=== PATIENT | female | born 1990 | race American Indian/Alaskan Native ===

== ENCOUNTER 2016-10-11 11:29 | Emergency (ER) | payer MEDICAID, OTHER ==
[2016-10-11 12:12] VITALS: BP 110/61
[2016-10-11] MEDS ORDERED: TYLENOL PO ONE ×2 (12:13→13:17)
[2016-10-11] MEDS ORDERED: LIDOCAINE VISCOUS 2% PO ONE (13:17)
[2016-10-11] MEDS ORDERED: XYLOCAINE 1% MPF 5 mL INFILTRATI ONE (13:17)
[2016-10-11] MEDS ORDERED: DELTASONE PO ONE (13:17)
[2016-10-11] MEDS ORDERED: ROCEPHIN IM ONE (13:17)
--- NOTE | 2016-10-11 13:32 | Emergency Department Report ---
HPI - General Chief Complaint: Sore Throat Time Seen by Provider: 10/11/16 12:57 - HPI HPI: Patient is a 26-year-old male who presents to ED with his mother complaining of throat pain 3 days. Patient describes pain as throbbing in nature, 8 out of 10 intensity, nonradiating, localized to his throat. Admits pain with swallowing and eating. Patient admits no appetite due to throat pain. Patient admits dry, nonproductive cough. Patient admits fever and chills Patient denies nausea/vomiting/abdominal pain/shortness of breath/chest pain/ headache. ED Past Medical Hx - Past Medical History Previous Medical History?: Yes Hx Hypertension: No Hx Diabetes: No Hx Deep Vein Thrombosis: No Hx Renal Disease: No Hx Sickle Cell Disease: No Hx Seizures: No Hx Asthma: Yes (pt reports also have hx of chronic bronchitis) Hx HIV: No Additional medical history: bronchitis - Surgical History Past Surgical History?: Yes Additional Surgical History: x 1. D&C x 1 - Social History Smoking Status: Current Every Day Smoker Substance Use Type: None - Medications Home Medications: Home Medications Medication Instructions Recorded Confirmed Last Taken Type Docusate Sodium [Colace] 100 mg PO BID PRN #60 capsule 09/15/15 Unknown Rx Ferrous Sulfate [Feosol 325 MG tab] 325 mg PO BID #60 tablet 09/15/15 Unknown Rx Oxycodone HCl/Acetaminophen 1 each PO Q6HR PRN #45 tablet 09/15/15 Unknown Rx [Percocet 7.5/325 mg] Ondansetron [Zofran ODT TAB] 8 mg PO Q8HR #24 tab.rapdis 05/29/16 Unknown Rx Ibuprofen [Motrin 800 MG tab] 800 mg PO Q8HR PRN #60 tablet 10/11/16 Unknown Rx guaiFENesin [Robitussin] 200 mg PO Q6H #100 ml 10/11/16 Unknown Rx ED Review of Systems ROS: Stated complaint: SORE THROAT Other details as noted in HPI Constitutional: denies: chills, fever Eyes: denies: eye pain, eye discharge, vision change ENT: denies: ear pain, throat pain, dental pain, hearing loss, congestion Respiratory: denies: cough, shortness of breath, wheezing Cardiovascular: denies: chest pain, palpitations Endocrine: no symptoms reported Gastrointestinal: denies: abdominal pain, nausea, vomiting, diarrhea, constipation Genitourinary: denies: urgency, dysuria, frequency, hematuria, discharge Musculoskeletal: denies: back pain, joint swelling, arthralgia Skin: denies: rash, lesions, pruritus Neurological: denies: headache, weakness, numbness, paresthesias, confusion Psychiatric: denies: anxiety, depression Hematological/Lymphatic: denies: easy bleeding, easy bruising Physical Exam - Physical Exam Vital Signs: Vital Signs 10/11/16 12:09 Temperature 101.8 F H Pulse Rate 88 Respiratory 18 Rate Blood Pressure 110/61 O2 Sat by Pulse 100 Oximetry Physical Exam: GENERAL: Alert and oriented x3, no apparent distress, Normal Gait, atraumatic. HEAD: Head is normocephalic and a-traumatic. EYES: Extra ocular muscles are intact. Pupils are equal, round, and reactive to light and accommodation. EARS: symetrical, atraumatic, non tender, ear canal clear and moderate cerumen, tympanic membrance non inflamed. gross auditory nml bilaterally. NOSE: Nose symetrical, Nontender,Nares appeared normal. MOUTH:Mouth is well hydrated and without lesions. Tonsils erythematous and mildly swollen, Uvula midline, Tongue not elevated. Mucous membranes are moist. Posterior pharynx with exudate, no lesions. Patent airways. NECK: Supple. Non edematous, No carotid bruits. Anterior cervical lymphadenopathy o, no thyromegaly. No C-spine tenderness LUNGS: Symetrical with respiration, No wheezing, no rales or crackles, CTAB. HEART: S1, S2 present, regular rate and rhythm without murmur, no rubs, no gallops. ABDOMEN: No organomegaly was noted,Positive bowel sounds, soft, and non- distended. . Nontender to palpation on all Quadrants, NO CVA tenderness. PSYCHIATRIC: Mood is congruent with affect, denies suicidal or homicidal ideations. SKIN: Warm and dry, No lesions, No ulceration or induration present. ED Course Vital Signs 10/11/16 12:09 Temperature 101.8 F H Pulse Rate 88 Respiratory 18 Rate Blood Pressure 110/61 O2 Sat by Pulse 100 Oximetry ED Medical Decision Making - Medical Decision Making 26-year-old female presents with bacterial tonsillitis ED course: Patient is sedated with 50 mg of Rocephin, Tylenol, 40 mg of prednisone viscous lidocaine for throat pain. Rapid strep test negative pending culture. Rocephin was administered to patient due to infected nature of the tonsils with exudate. Discussed the patient possibly some other form of bacterial pharyngitis so treated with Rocephin in the ED Discussed the patient take medication as discussed. Discussed patient took over -the-counter symptomatic relief as needed. Discussed the follow-up with primary care physician in 3-5 days. Signs are normal. Patient stated was responsive to dose of Tylenol. Patient is in no acute or respiratory distress. Critical care attestation.: If time is entered above; I have spent that time in minutes in the direct care of this critically ill patient, excluding procedure time. ED Disposition Clinical Impression: Acute tonsillitis Qualifiers: Pharyngitis/tonsillitis etiology: other specified organisms Qualified Code(s): J03.80 - Acute tonsillitis due to other specified organisms; J03.8 - Acute tonsillitis due to other specified organisms Pharyngitis Qualifiers: Pharyngitis/tonsillitis etiology: other specified organisms Qualified Code(s): J02.8 - Acute pharyngitis due to other specified organisms Disposition: DISCHARGED TO HOME OR SELFCARE Is pt being admited?: No Does the pt Need Aspirin: No Condition: Stable Instructions: Pharyngitis (ED), Strep Throat (ED) Additional Instructions: Follow-up with your care physician in 3-5 days as days. Take Motrin as needed for pain. [id number] pain cough medication. Prescriptions: guaiFENesin [Robitussin] 200 mg PO Q6H #100 ml Ibuprofen [Motrin 800 MG tab] 800 mg PO Q8HR PRN #60 tablet PRN Reason: Pain Referrals: DELPHINE MOROCHO MD [Primary Care Provider] - 3-5 Days Forms: Accompanied Note, Work/School Release Form(ED) Time of Disposition: 13:48
== END 2016-10-11 14:12 | disposition home or self-care (01) ==
LOC: ED 11:29
DX: J03.80 Acute tonsillitis due to other specified organisms (principal); J02.8 Acute pharyngitis due to other specified organisms; J45.909 Unspecified asthma, uncomplicated; F17.200 Nicotine dependence, unspecified, uncomplicated
CPT/HCPCS: 87116; 87430; 96372; 99282; J0696; J7512

== ENCOUNTER 2020-04-18 22:16 | Emergency (ER) | payer SELFPAY ==
[2020-04-18 23:42] LABS: Bilirubin,Urine NEG (Negative); Blood,Urine MOD (Negative); Color,Urine Amber (Yellow); Mucus,Urine 3+ /HPF
[2020-04-18 23:46] VITALS: BP 119/71
[2020-04-19 00:01] LABS: HCG Qualitative,Urine Negative (Negative); Protein,Urine >500 mg/dL (Negative); WBC,Urine > 182.0 /HPF (0.0-6.0)
[2020-04-19] MEDS ORDERED: ACETAMINOPHEN 500 MG TAB PO ONE (02:16)
[2020-04-19] MEDS ORDERED: PHENAZOPYRIDINE 200 MG TAB PO ONE (02:16)
[2020-04-19] MEDS ORDERED: ONDANSETRON 4 MG ODT TAB PO ONE (02:16)
[2020-04-19] MEDS ORDERED: cephALEXin 500 MG CAP PO ONE (02:16)
--- NOTE | 2020-04-19 03:04 | Emergency Department Report ---
ED Female HPI - General Chief complaint: Urogenital-Female Stated complaint: PAINFUL URINATION/BLOOD IN URINE/VAGINAL IRRITATIO Source: patient Mode of arrival: Ambulatory Limitations: No Limitations - History of Present Illness Initial comments: Patient is a A2 30-year-old -[place] female with no past medical history presents to the ED with complaint of acute onset persistent dysuria, urine frequency and urgency, suprapubic pressure and low back pain for the last 2 days. Patient states that symptoms have worsened in the last 12 hours such that she has not been able to sleep because of persistent urinary frequency and dysuria. Patient denies vaginal bleeding, fever, chills, nausea, vomiting, abdominal pain, dizziness, syncope, chest pain, shortness of breath, traumatic injury, heavy lifting, vaginal discharge or dyspareunia. MD Complaint: dysuria, pelvic pain (Suprapubic pressure), other (Urinary frequency and urgency) -: Sudden, days(s) (2) Location: suprapubic, other (vaginal) Radiation: non-radiating Severity: moderate Severity scale (0 -10): 4 Quality: burning Consistency: intermittent Worsens with: urination Are you Now?: No Last Menstrual Period: 04/09/20 EDC: 01/14/21 Associated Symptoms: denies other symptoms, abdominal pain (suprapubic pressure), dysuria. denies: vaginal discharge, vaginal bleeding, nausea/vomiting, fever/chills, headaches, loss of appetite, hematuria, rash, seizure, shortness of breath, syncope - Related Data Sexually active: Yes : 4 Para: 2 A: 2 Previous Rx's Medication Instructions Recorded Last Taken Type Docusate Sodium [Colace] 100 mg PO BID PRN #60 capsule 09/15/15 Unknown Rx Ferrous Sulfate [Feosol 325 MG tab] 325 mg PO BID #60 tablet 09/15/15 Unknown Rx Oxycodone HCl/Acetaminophen 1 each PO Q6HR PRN #45 tablet 09/15/15 Unknown Rx [Percocet 7.5/325 mg] Ondansetron [Zofran ODT TAB] 8 mg PO Q8HR #24 tab.rapdis 05/29/16 Unknown Rx Ibuprofen [Motrin 800 MG tab] 800 mg PO Q8HR PRN #60 tablet 10/11/16 Unknown Rx guaiFENesin [Robitussin] 200 mg PO Q6H #100 ml 10/11/16 Unknown Rx Ibuprofen [Motrin] 600 mg PO Q8H PRN #24 tablet 04/19/20 Unknown Rx Ondansetron [Zofran Odt] 4 mg PO Q6HR PRN #15 tab.rapdis 04/19/20 Unknown Rx Phenazopyridine [Pyridium] 200 mg PO TID #21 tab 04/19/20 Unknown Rx cephALEXin [Keflex] 500 mg PO Q6HR #40 capsule 04/19/20 Unknown Rx Allergies Allergy/AdvReac Type Severity Reaction Status Date / Time No Known Allergies Allergy Verified 02/02/15 16:38 ED Review of Systems ROS: Stated complaint: PAINFUL URINATION/BLOOD IN URINE/VAGINAL IRRITATIO Other details as noted in HPI Constitutional: denies: chills, fever Eyes: denies: eye pain, eye discharge, vision change ENT: denies: ear pain, throat pain Respiratory: denies: cough, shortness of breath, wheezing Cardiovascular: denies: chest pain, palpitations Endocrine: no symptoms reported Gastrointestinal: abdominal pain (Suprapubic pressure). denies: nausea, vomiting, diarrhea Genitourinary: urgency, dysuria, frequency. denies: hematuria, discharge, abnormal menses, dyspareunia, other Musculoskeletal: back pain (Low back pain). denies: joint swelling, arthralgia Skin: denies: rash, lesions Neurological: denies: headache, weakness, paresthesias Psychiatric: denies: anxiety, depression Hematological/Lymphatic: denies: easy bleeding, easy bruising ED Past Medical Hx - Past Medical History Hx Hypertension: No Hx Diabetes: No Hx Deep Vein Thrombosis: No Hx Renal Disease: No Hx Sickle Cell Disease: No Hx Seizures: No Hx Asthma: Yes (pt reports also have hx of chronic bronchitis) Hx HIV: No Additional medical history: bronchitis - Surgical History Additional Surgical History: x 1. D&C x 1 - Social History Smoking Status: Never Smoker Substance Use Type: None - Medications Home Medications: Home Medications Medication Instructions Recorded Confirmed Last Taken Type Docusate Sodium [Colace] 100 mg PO BID PRN #60 capsule 09/15/15 Unknown Rx Ferrous Sulfate [Feosol 325 MG tab] 325 mg PO BID #60 tablet 09/15/15 Unknown Rx Oxycodone HCl/Acetaminophen 1 each PO Q6HR PRN #45 tablet 09/15/15 Unknown Rx [Percocet 7.5/325 mg] Ondansetron [Zofran ODT TAB] 8 mg PO Q8HR #24 tab.rapdis 05/29/16 Unknown Rx Ibuprofen [Motrin 800 MG tab] 800 mg PO Q8HR PRN #60 tablet 10/11/16 Unknown Rx guaiFENesin [Robitussin] 200 mg PO Q6H #100 ml 10/11/16 Unknown Rx Ibuprofen [Motrin] 600 mg PO Q8H PRN #24 tablet 04/19/20 Unknown Rx Ondansetron [Zofran Odt] 4 mg PO Q6HR PRN #15 tab.rapdis 04/19/20 Unknown Rx Phenazopyridine [Pyridium] 200 mg PO TID #21 tab 04/19/20 Unknown Rx cephALEXin [Keflex] 500 mg PO Q6HR #40 capsule 04/19/20 Unknown Rx ED Physical Exam - General Limitations: No Limitations General appearance: alert, in no apparent distress - Head Head exam: Present: atraumatic, normocephalic, normal inspection - Eye Eye exam: Present: normal appearance, PERRL, EOMI Pupils: Present: normal accommodation - ENT ENT exam: Present: normal exam, normal orophraynx, mucous membranes moist, TM's normal bilaterally, normal external ear exam - Neck Neck exam: Present: normal inspection, full ROM - Respiratory Respiratory exam: Present: normal lung sounds bilaterally. Absent: respiratory distress, wheezes, rales, rhonchi, chest wall tenderness, accessory muscle use, decreased breath sounds, prolonged expiratory - Cardiovascular Cardiovascular Exam: Present: regular rate, normal rhythm, normal heart sounds. Absent: systolic murmur, diastolic murmur, rubs, gallop - GI/Abdominal GI/Abdominal exam: Present: soft, normal bowel sounds. Absent: tenderness, guarding, rebound, hyperactive bowel sounds, hypoactive bowel sounds, organomeg rika - Extremities Exam Extremities exam: Present: normal inspection, full ROM, normal capillary refill - Back Exam Back exam: Present: normal inspection, full ROM. Absent: tenderness, CVA tenderness (R), CVA tenderness (L), muscle spasm, paraspinal tenderness, vertebral tenderness - Neurological Exam Neurological exam: Present: alert, oriented X3, CN II-XII intact, normal gait, reflexes normal - Psychiatric Psychiatric exam: Present: normal affect, normal mood - Skin Skin exam: Present: warm, dry, intact, normal color. Absent: rash ED Course Vital Signs 04/18/20 22:30 Temperature 98.3 F Pulse Rate 95 H Respiratory 18 Rate Blood Pressure 119/71 O2 Sat by Pulse 98 Oximetry ED Medical Decision Making - Medical Decision Making This is a A2 30-year-old -[place] female with no past medical history presents to the ED with complaint of acute onset persistent dysuria, urine frequency and urgency, suprapubic pressure and low back pain for the last 2 days. Patient states that symptoms have worsened in the last 12 hours such that she has not been able to sleep because of persistent urinary frequency and dysuria. In the ED, patient is alert and oriented x3 and is not in distress. Urinalysis shows significant urinary tract infection. Patient was treated in the ED with initial oral antibiotics and pain medications, and was discharged home on oral antibiotics and pain medications. Patient was advised to drink plenty of fluids and take pain medications and antibiotics and to follow-up with her primary care physician in 5 to 7 days for reevaluation or return to the ED immediately if symptoms get worse. - Differential Diagnosis UTI; STD; Muscle spasm; PID Critical care attestation.: If time is entered above; I have spent that time in minutes in the direct care of this critically ill patient, excluding procedure time. ED Disposition Clinical Impression: Acute urinary tract infection, Dysuria Disposition: TO HOME OR SELFCARE Is pt being admited?: No Does the pt Need Aspirin: No Condition: Stable Instructions: Urinary Tract Infection in Women (ED) Additional Instructions: Take medication with food, drink plenty of fluids and follow-up with your primary care physician in 7 to 10 days for reevaluation. Return to the ED immediately if symptoms get worse. Prescriptions: cephALEXin [Keflex] 500 mg PO Q6HR #40 capsule Ibuprofen [Motrin] 600 mg PO Q8H PRN #24 tablet PRN Reason: Pain Phenazopyridine [Pyridium] 200 mg PO TID #21 tab Ondansetron [Zofran Odt] 4 mg PO Q6HR PRN #15 tab.rapdis PRN Reason: Nausea Referrals: [facility] [Provider Group] - 3-5 Days Time of Disposition: 03:06 Print Language: MALIAN
== END 2020-04-19 03:15 | disposition home or self-care (01) ==
LOC: ED 22:16
DX: N39.0 Urinary tract infection, site not specified (principal); R30.0 Dysuria; J45.909 Unspecified asthma, uncomplicated; Z79.899 Other long term (current) drug therapy; Z98.890 Other specified postprocedural states
CPT/HCPCS: 81001; 81025; 99283; Q0162

== ENCOUNTER 2020-09-06 18:57 | Emergency (ER) | payer OTHER ==
[2020-09-06 19:29] VITALS: BP 126/82
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
[2020-09-06 22:14] LABS: HCG Qualitative,Urine Negative (Negative)
[2020-09-06] MEDS ORDERED: ACETAMINOPHEN 325 MG TAB PO ONE (22:15)
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
== END 2020-09-06 23:30 | disposition home or self-care (01) ==
LOC: ED 18:57
DX: S16.1XXA Strain of muscle, fascia and tendon at neck level, initial encounter (principal); M62.838 Other muscle spasm; G44.319 Acute post-traumatic headache, not intractable; J45.909 Unspecified asthma, uncomplicated; F17.200 Nicotine dependence, unspecified, uncomplicated; Z98.890 Other specified postprocedural states; Z79.899 Other long term (current) drug therapy; V49.49XA Driver injured in collision with other motor vehicles in traffic accident, initial encounter; Y92.410 Unspecified street and highway as the place of occurrence of the external cause; Y93.89 Activity, other specified; Y99.8 Other external cause status
CPT/HCPCS: 70450; 72125; 81025

== ENCOUNTER 2021-12-30 10:42 | Emergency (ER) | payer SELFPAY ==
[2021-12-30 16:42] VITALS: BP 108/68
--- NOTE | 2021-12-30 16:54 | Emergency Department Report ---
ED Rash HPI - HPI Chief Complaint: Skin/Abscess/Foreign Body Stated Complaint: RECURRING COLD SORE Location: Other (mouth ) Rash Symptoms: Yes Blistering, No Itching, No Facial Swelling, No Tongue/Oral Swelling, No Breathing Difficulties, No Choking Sensation, No Wheezing/Dyspnea, No Peeling, No Fever, No Lightheaded, No Malaise, No Myalgias Severity: moderate Other History: 31-year-old female presents to the ED with mouth ulcer noted to her mouth x2 weeks. States she was informed by her boyfriend that has promised herpes simplex breakouts. States that she has been using [id number] medication without any relief. He states that mouth ulcers are painful right them as a 3 out of 10. No drainage noted, denies any fever chills nausea vomit. No acute distress noted no ill appearance noted. Patient denies any vaginal lesion. ED Review of Systems ROS: Stated complaint: RECURRING COLD SORE Other details as noted in HPI Constitutional: denies: chills, fever Eyes: denies: eye pain, eye discharge, vision change ENT: denies: ear pain, throat pain Respiratory: denies: cough, shortness of breath, wheezing Cardiovascular: denies: chest pain, palpitations Endocrine: no symptoms reported Gastrointestinal: denies: abdominal pain, nausea, diarrhea Genitourinary: denies: urgency, dysuria, discharge Musculoskeletal: denies: back pain, joint swelling, arthralgia Skin: lesions. denies: rash Neurological: denies: headache, weakness, paresthesias Psychiatric: denies: anxiety, depression Hematological/Lymphatic: denies: easy bleeding, easy bruising ED Past Medical Hx - Past Medical History Previous Medical History?: Yes Hx Hypertension: No Hx Diabetes: No Hx Deep Vein Thrombosis: No Hx Renal Disease: No Hx Sickle Cell Disease: No Hx Seizures: No Hx Asthma: Yes (pt reports also have hx of chronic bronchitis) Hx HIV: No Additional medical history: bronchitis - Surgical History Past Surgical History?: Yes Additional Surgical History: x 1. D&C x 1 - Social History Smoking Status: Current Every Day Smoker Substance Use Type: Alcohol - Medications Home Medications: Home Medications Medication Instructions Recorded Confirmed Last Taken Type Docusate Sodium [Colace] 100 mg PO BID PRN #60 capsule 09/15/15 Unknown Rx Ferrous Sulfate [Feosol 325 MG tab] 325 mg PO BID #60 tablet 09/15/15 Unknown Rx Oxycodone HCl/Acetaminophen 1 each PO Q6HR PRN #45 tablet 09/15/15 Unknown Rx [Percocet 7.5/325 mg] Ondansetron [Zofran ODT TAB] 8 mg PO Q8HR #24 tab.rapdis 05/29/16 Unknown Rx Ibuprofen [Motrin 800 MG tab] 800 mg PO Q8HR PRN #60 tablet 10/11/16 Unknown Rx guaiFENesin [Robitussin] 200 mg PO Q6H #100 ml 10/11/16 Unknown Rx Ondansetron [Zofran Odt] 4 mg PO Q6HR PRN #15 tab.rapdis 04/19/20 Unknown Rx Phenazopyridine [Pyridium] 200 mg PO TID #21 tab 04/19/20 Unknown Rx cephALEXin [Keflex] 500 mg PO Q6HR #40 capsule 04/19/20 Unknown Rx Baclofen 20 mg PO Q8H PRN #18 tablet 09/06/20 Unknown Rx Ibuprofen [Motrin 600 MG tab] 600 mg PO Q8H PRN #30 tablet 09/06/20 Unknown Rx Valacyclovir HCl [Valacyclovir] 1,000 mg PO BID 7 Days #15 tab 12/30/21 Unknown Rx Rash Exam - Exam General: Vital signs noted. No distress. Alert and acting appropriately. HEENT: No Periorbital Edema, No Conjuctival Injection, No Chemosis, No Perioral Edema, No Tongue Edema, No Uvular Edema, No Compromised Airway, No Drooling Lungs: Yes Good Air Exchange (Normal Breath Sounds), No Wheezes, No Ronchi, No Stridor, No Cough, No Labored Respirations, No Retractions, No Use of Accessory Muscles, No Other Abnormal Lung Sounds Heart: Yes Regular, No Murmur Other: Positive: Abdomen Normal, Neurologic Normal, Musculoskeletal Normal ED Course Vital Signs 12/30/21 12/30/21 10:52 16:33 Temperature 98.8 F 98.0 F Pulse Rate 78 56 L Respiratory 20 12 Rate Blood Pressure 108/68 Blood Pressure 122/87 106/78 [Right] O2 Sat by Pulse 100 100 Oximetry ED Medical Decision Making - Medical Decision Making 31-year-old female presents to the ED with mouth ulcer noted to her mouth x2 weeks. States she was informed by her boyfriend that has promised herpes simplex breakouts. States that she has been using [id number] medication without any relief. He states that mouth ulcers are painful right them as a 3 out of 10. No drainage noted, denies any fever chills nausea vomit. No acute distress noted no ill appearance noted. Patient denies any vaginal lesion. Physical examination patient has multiple vesicles noted to her upper and lower lip. Rechecked the patient is resting quietly quietly and comfortable and feeling better. I discussed the results of diagnostic study, my clinical impression and the plan for further treatment with the patient. Patient agrees with plan and discharge at this present time. All question addressed. I have given the patient instruction regarding a diagnosis ,expectation ,follow- up and return precaution. I explained to the patient that emergent condition may arise and to return to the ED for new worsen and any new persisting condition. I have explained the importance of following up with the primary care physician or referral physician listed below has instructed. The patient verbalized understanding of discharge instruction. Critical care attestation.: If time is entered above; I have spent that time in minutes in the direct care of this critically ill patient, excluding procedure time. ED Disposition Clinical Impression: Herpes simplex Disposition: 01 HOME / SELF CARE / HOMELESS Is pt being admited?: No Does the pt Need Aspirin: No Condition: Stable Instructions: Cold Sore, [id number] Additional Instructions: Take medication as prescribed Return to the ED for any worsening symptom Prescriptions: Valacyclovir HCl [Valacyclovir] 1,000 mg PO BID 7 Days #15 tab Referrals: [facility] [Provider Group] - 3-5 Days [facility] [Provider Group] - 3-5 Days Forms: Work/School Release Form(ED)
== END 2021-12-30 17:20 | disposition home or self-care (01) ==
LOC: ED 10:42
DX: B00.9 Herpesviral infection, unspecified (principal); J45.909 Unspecified asthma, uncomplicated; Z98.890 Other specified postprocedural states; F17.290 Nicotine dependence, other tobacco product, uncomplicated
CPT/HCPCS: 99282